=== PATIENT | male | born 1970 | race Caucasian/White ===

== ENCOUNTER 2018-01-09 13:35 | Inpatient (IN) | payer MEDICARE, MEDICAID ==
[~2018-01-09] VITALS: Ht 165.1 cm; Wt 79.8 kg
[~2018-01-09 13:35] MED LIST: FOLI1 PO; LITH150C PO; LITH600 PO; MULT1CAP32 PO; PANT40TA25 PO; PARO-66 PO; PARO20TA24 PO; QUET100T PO; QUET200T PO; THIA100 PO
[2018-01-09 15:31] LABS: BASOPHILS % (AUTO) 0.5 % (0.0-2.0); EOSINOPHILS % (AUTO) 1.7 % (1.0-6.0); HEMATOCRIT 49.5 % (41-53); HEMOGLOBIN 17.2 g/dL (13.5-17.5); LYMPHOCYTES # (AUTO) 1.6 K/uL (1.0-4.8); LYMPHOCYTES % (AUTO) 15.4 % (22.0-44.0); MEAN CORPUSCULAR HEMOGLOBIN 31.7 pg (26.0-34.0); MEAN CORPUSCULAR HGB CONC 34.7 G/dL (31.0-37.0); MEAN CORPUSCULAR VOLUME 92 fL (80-100); MONOCYTES # (AUTO) 0.7 K/uL (0.1-1.0); MONOCYTES % (AUTO) 6.2 % (2.0-9.0); NEUTROPHILS % (AUTO) 76.2 % (40.0-70.0); PLATELET COUNT (AUTO) 250 K/uL (150-450); RED BLOOD CELL COUNT(AUTO) 5.41 MIL/uL (4.50-5.90); RED CELL DISTRIBUTION WIDTH 13.7 % (11.5-14.5)
[2018-01-09 15:49] LABS: ANION GAP 10 mmol/L (8-16); CALCIUM, TOTAL 8.9 mg/dL (8.8-10.5); CARBON DIOXIDE 26 mmol/L (22-29); CHLORIDE 104 mmol/L (98-107); CREATININE 0.96 mg/dL (0.60-1.30); GLOMERULAR FILTR. RATE CALC > 60 mL/min (>60); GLUCOSE,RANDOM 90 mg/dL (70-110); POTASSIUM 3.6 mmol/L (3.5-5.1); SODIUM SERUM 140 mmol/L (136-145); UREA NITROGEN, BLOOD 12 mg/dL (7-18)
[2018-01-09 15:53] LABS: ALANINE AMINOTRANSFERASE 120 U/L (12-78); ALBUMIN 3.9 g/dL (3.4-5.0); ALKALINE PHOSPHATASE 65 U/L (46-116); ASPARTATE AMINOTRANSFERASE 81 U/L (15-37); BILIRUBIN,TOTAL 0.7 mg/dL (0.1-1.0); TOTAL PROTEIN, SERUM 6.5 g/dL (6.4-8.2)
[2018-01-09 16:07] LABS: LITHIUM < 0.20 mmol/L (0.60-1.20)
[2018-01-09 18:14] LABS: CHOLESTEROL 162 mg/dL (131-200); FREE T4 (FREE THYROXINE) 1.24 ng/dL (0.76-1.46); HDL CHOLESTEROL 41 mg/dL (40-60); LDL CHOL (CALC.) 100 mg/dL (0-130); THYROID STIMULATING HORMONE 0.48 uIU/mL (0.36-3.74); TRIGLYCERIDES 107 mg/dL (15-150)
[2018-01-09] MEDS ORDERED: IBUPROFEN 400 MG TABLET PO PRN (19:45)
[2018-01-09] MEDS ORDERED: ACETAMINOPHEN 325 MG TABLET PO PRN (19:45)
[2018-01-09 20:25] VITALS: BP 138/75
[2018-01-10] MEDS: PANTOPRAZOLE SODIUM 40 MG DR TABLET PO SCH (06:54)
[2018-01-10 07:51] LABS: CHOL/HDL RATIO 3.9 (4.2-7.3); THYROID STIMULATING HORMONE 0.5 uIU/mL (0.36-3.74)
[2018-01-10 08:02] LABS: HEMOGLOBIN A1C 5.8 % (4.5-6.2)
[2018-01-10] MEDS: MULTIVITAMINS WITH MINERALS, THERAPEUTIC TABLET PO SCH (09:25)
[2018-01-10] MEDS: LORazepam 2 MG TABLET PO PRN (09:27)
[2018-01-10 11:08] VITALS: BP 146/104
[2018-01-10] MEDS: PARoxetine HCL 20 MG TABLET PO SCH (12:03)
[2018-01-10 16:28] VITALS: BP 117/71
[2018-01-10] MEDS ORDERED: ALBUTEROL SULFATE HFA 90 MCG/PUFF 8 GM INHALER IH PRN (16:30)
[2018-01-10] MEDS: QUEtiapine FUMARATE 200 MG TABLET PO SCH (20:37)
[2018-01-11] MEDS: PANTOPRAZOLE SODIUM 40 MG DR TABLET PO SCH (06:51)
[2018-01-11 08:45] VITALS: BP 136/74
[2018-01-11] MEDS: OMEPRAZOLE 20 MG CAPSULE PO SCH (09:20)
[2018-01-11] MEDS: PARoxetine HCL 20 MG TABLET PO SCH (09:20)
[2018-01-11] MEDS: MULTIVITAMINS WITH MINERALS, THERAPEUTIC TABLET PO SCH (09:20)
[2018-01-11] MEDS: LORazepam 2 MG TABLET PO PRN ×3 (09:21→22:04)
[2018-01-11 16:26] VITALS: BP 114/66
[2018-01-11] MEDS: QUEtiapine FUMARATE 200 MG TABLET PO SCH (20:42)
[2018-01-12] MEDS: PANTOPRAZOLE SODIUM 40 MG DR TABLET PO SCH (06:50)
[2018-01-12 09:37] VITALS: BP 111/84
[2018-01-12] MEDS: LORazepam 2 MG TABLET PO PRN ×3 (09:49→21:01)
[2018-01-12] MEDS: MULTIVITAMINS WITH MINERALS, THERAPEUTIC TABLET PO SCH (09:50)
[2018-01-12] MEDS: OMEPRAZOLE 20 MG CAPSULE PO SCH (09:50)
[2018-01-12] MEDS: PARoxetine HCL 20 MG TABLET PO SCH (09:50)
[2018-01-12 16:36] VITALS: BP_SYST 121; BP_SYST 123; BP_DIAS 63; BP_DIAS 84
[2018-01-12] MEDS: QUEtiapine FUMARATE 200 MG TABLET PO SCH (20:03)
[2018-01-13] MEDS: ZOLPIDEM TARTRATE 10 MG TABLET PO PRN ×2 (00:29→22:56)
[2018-01-13] MEDS: HALOPERIDOL 5 MG TABLET PO PRN ×2 (00:31→00:35)
[2018-01-13 01:36] VITALS: BP 120/90
[2018-01-13] MEDS: PANTOPRAZOLE SODIUM 40 MG DR TABLET PO SCH (06:54)
[2018-01-13] MEDS: LORazepam 2 MG TABLET PO PRN ×2 (09:22→20:53)
[2018-01-13] MEDS: OMEPRAZOLE 20 MG CAPSULE PO SCH (09:22)
[2018-01-13] MEDS: MULTIVITAMINS WITH MINERALS, THERAPEUTIC TABLET PO SCH (09:22)
[2018-01-13] MEDS: PARoxetine HCL 20 MG TABLET PO SCH (09:22)
[2018-01-13 09:36] VITALS: BP 126/81
[2018-01-13] MEDS: QUEtiapine FUMARATE 200 MG TABLET PO SCH (20:53)
[2018-01-13 21:39] VITALS: BP 127/82
[2018-01-14] MEDS: PANTOPRAZOLE SODIUM 40 MG DR TABLET PO SCH (06:55)
[2018-01-14 08:46] VITALS: BP 126/98
[2018-01-14] MEDS: PARoxetine HCL 20 MG TABLET PO SCH (09:04)
[2018-01-14] MEDS: OMEPRAZOLE 20 MG CAPSULE PO SCH (09:04)
[2018-01-14] MEDS: MULTIVITAMINS WITH MINERALS, THERAPEUTIC TABLET PO SCH (09:04)
[2018-01-14] MEDS: LORazepam 2 MG TABLET PO PRN ×2 (10:52→15:37)
[2018-01-14 18:51] VITALS: BP 123/85
[2018-01-14] MEDS: QUEtiapine FUMARATE 200 MG TABLET PO SCH (20:00)
[2018-01-14] MEDS: ZOLPIDEM TARTRATE 10 MG TABLET PO PRN (20:31)
[2018-01-15 00:20] VITALS: BP 110/73
[2018-01-15] MEDS: LORazepam 2 MG TABLET PO PRN ×4 (00:22→19:02)
[2018-01-15] MEDS: PANTOPRAZOLE SODIUM 40 MG DR TABLET PO SCH (06:41)
[2018-01-15 08:40] VITALS: BP 103/63
[2018-01-15] MEDS: MULTIVITAMINS WITH MINERALS, THERAPEUTIC TABLET PO SCH (09:04)
[2018-01-15] MEDS: OMEPRAZOLE 20 MG CAPSULE PO SCH (09:04)
[2018-01-15] MEDS: PARoxetine HCL 20 MG TABLET PO SCH (09:04)
[2018-01-15 13:40] VITALS: BP 116/78
[2018-01-15] MEDS: QUEtiapine FUMARATE 300 MG TABLET PO SCH (20:08)
[2018-01-15 20:36] VITALS: BP 128/83
[2018-01-15] MEDS: ZOLPIDEM TARTRATE 10 MG TABLET PO PRN (22:32)
[2018-01-16] MEDS: PANTOPRAZOLE SODIUM 40 MG DR TABLET PO SCH (06:55)
[2018-01-16 08:52] VITALS: BP 115/71
[2018-01-16] MEDS: MULTIVITAMINS WITH MINERALS, THERAPEUTIC TABLET PO SCH (10:36)
[2018-01-16] MEDS: PARoxetine HCL 20 MG TABLET PO SCH (10:36)
[2018-01-16] MEDS: OMEPRAZOLE 20 MG CAPSULE PO SCH (10:36)
[2018-01-16] MEDS: LORazepam 2 MG TABLET PO PRN ×2 (10:41→16:06)
[2018-01-16 16:07] VITALS: BP 124/76
[2018-01-16] MEDS: QUEtiapine FUMARATE 300 MG TABLET PO SCH (20:04)
[2018-01-16] MEDS: ZOLPIDEM TARTRATE 10 MG TABLET PO PRN (20:38)
[2018-01-17] MEDS: PANTOPRAZOLE SODIUM 40 MG DR TABLET PO SCH (06:36)
[2018-01-17 08:53] VITALS: BP 130/93
[2018-01-17] MEDS: OMEPRAZOLE 20 MG CAPSULE PO SCH (08:56)
[2018-01-17] MEDS: PARoxetine HCL 20 MG TABLET PO SCH (08:56)
[2018-01-17] MEDS: MULTIVITAMINS WITH MINERALS, THERAPEUTIC TABLET PO SCH (08:56)
[2018-01-17] MEDS: LORazepam 2 MG TABLET PO PRN ×2 (10:49→16:58)
[2018-01-17] MEDS ORDERED: PARoxetine HCL 20 MG TABLET PO ONE (11:30)
[2018-01-17 16:43] VITALS: BP 111/61
[2018-01-17] MEDS: QUEtiapine FUMARATE 300 MG TABLET PO SCH (20:11)
[2018-01-18] MEDS: PANTOPRAZOLE SODIUM 40 MG DR TABLET PO SCH (06:33)
[2018-01-18] MEDS: OMEPRAZOLE 20 MG CAPSULE PO SCH (08:57)
[2018-01-18] MEDS: MULTIVITAMINS WITH MINERALS, THERAPEUTIC TABLET PO SCH (08:57)
[2018-01-18] MEDS: PARoxetine HCL 20 MG TABLET PO SCH (08:58)
[2018-01-18 09:04] VITALS: BP 104/62
[2018-01-18] MEDS: LORazepam 2 MG TABLET PO PRN (14:21)
[2018-01-18 16:59] VITALS: BP 132/77
[2018-01-18] MEDS: LOPERAMIDE HCL 2 MG CAPSULE PO PRN (17:19)
[2018-01-18] MEDS: QUEtiapine FUMARATE 300 MG TABLET PO SCH (20:11)
[2018-01-19] MEDS: PANTOPRAZOLE SODIUM 40 MG DR TABLET PO SCH (06:35)
[2018-01-19] MEDS: MULTIVITAMINS WITH MINERALS, THERAPEUTIC TABLET PO SCH (08:49)
[2018-01-19] MEDS: OMEPRAZOLE 20 MG CAPSULE PO SCH (08:49)
[2018-01-19] MEDS: PARoxetine HCL 20 MG TABLET PO SCH (08:49)
[2018-01-19] MEDS: HALOPERIDOL 5 MG TABLET PO PRN (08:49)
[2018-01-19] MEDS: LOPERAMIDE HCL 2 MG CAPSULE PO PRN ×2 (08:50→17:31)
[2018-01-19] MEDS: LORazepam 2 MG TABLET PO PRN ×2 (08:50→17:50)
[2018-01-19 10:26] VITALS: BP 115/78
[2018-01-19 16:19] VITALS: BP 106/67
[2018-01-19] MEDS: ZOLPIDEM TARTRATE 10 MG TABLET PO PRN (21:02)
[2018-01-19] MEDS: QUEtiapine FUMARATE 300 MG TABLET PO SCH (21:02)
[2018-01-20] MEDS: PANTOPRAZOLE SODIUM 40 MG DR TABLET PO SCH (06:51)
[2018-01-20] MEDS: PARoxetine HCL 20 MG TABLET PO SCH (09:03)
[2018-01-20] MEDS: MULTIVITAMINS WITH MINERALS, THERAPEUTIC TABLET PO SCH (09:03)
[2018-01-20] MEDS: OMEPRAZOLE 20 MG CAPSULE PO SCH (09:03)
[2018-01-20 11:51] VITALS: BP 108/67
[2018-01-20] MEDS: LORazepam 2 MG TABLET PO PRN (13:37)
[2018-01-20 16:32] VITALS: BP 116/77
[2018-01-20] MEDS: QUEtiapine FUMARATE 300 MG TABLET PO SCH (20:31)
[2018-01-20] MEDS: ZOLPIDEM TARTRATE 10 MG TABLET PO PRN (21:33)
[2018-01-21] MEDS: PANTOPRAZOLE SODIUM 40 MG DR TABLET PO SCH (06:26)
[2018-01-21] MEDS: OMEPRAZOLE 20 MG CAPSULE PO SCH (09:06)
[2018-01-21] MEDS: MULTIVITAMINS WITH MINERALS, THERAPEUTIC TABLET PO SCH (09:07)
[2018-01-21] MEDS: PARoxetine HCL 20 MG TABLET PO SCH (09:07)
[2018-01-21 10:05] VITALS: BP 131/79
[2018-01-21] MEDS: QUEtiapine FUMARATE 300 MG TABLET PO SCH (20:33)
[2018-01-21 21:10] VITALS: BP 136/88
[2018-01-22] MEDS: PANTOPRAZOLE SODIUM 40 MG DR TABLET PO SCH (06:19)
[2018-01-22 08:00] VITALS: BP 116/67
[2018-01-22] MEDS: MULTIVITAMINS WITH MINERALS, THERAPEUTIC TABLET PO SCH (09:30)
[2018-01-22] MEDS: PARoxetine HCL 20 MG TABLET PO SCH (09:30)
[2018-01-22] MEDS: OMEPRAZOLE 20 MG CAPSULE PO SCH (09:31)
[2018-01-22] MEDS: QUEtiapine FUMARATE 300 MG TABLET PO SCH (20:37)
[2018-01-22 20:50] VITALS: BP 135/87
[2018-01-23] MEDS: PANTOPRAZOLE SODIUM 40 MG DR TABLET PO SCH (07:06)
[2018-01-23 08:00] VITALS: BP 131/94
[2018-01-23] MEDS: MULTIVITAMINS WITH MINERALS, THERAPEUTIC TABLET PO SCH (09:29)
[2018-01-23] MEDS: OMEPRAZOLE 20 MG CAPSULE PO SCH (09:29)
[2018-01-23] MEDS: PARoxetine HCL 20 MG TABLET PO SCH (09:29)
[2018-01-23 17:07] VITALS: BP 134/78
[2018-01-23] MEDS: QUEtiapine FUMARATE 300 MG TABLET PO SCH (20:03)
[2018-01-24] MEDS: PANTOPRAZOLE SODIUM 40 MG DR TABLET PO SCH (07:04)
[2018-01-24 08:00] VITALS: BP 133/99
[2018-01-24] MEDS: OMEPRAZOLE 20 MG CAPSULE PO SCH (09:00)
[2018-01-24] MEDS: PARoxetine HCL 20 MG TABLET PO SCH (09:00)
[2018-01-24] MEDS: MULTIVITAMINS WITH MINERALS, THERAPEUTIC TABLET PO SCH (09:00)
[2018-01-24] MEDS: LORazepam 2 MG TABLET PO PRN ×3 (09:23→20:58)
[2018-01-24] MEDS: LOPERAMIDE HCL 2 MG CAPSULE PO PRN (10:47)
[2018-01-24 17:23] VITALS: BP 123/79
[2018-01-24] MEDS: QUEtiapine FUMARATE 300 MG TABLET PO SCH (20:10)
[2018-01-24] MEDS: ZOLPIDEM TARTRATE 10 MG TABLET PO PRN (20:58)
[2018-01-25] MEDS: HALOPERIDOL 5 MG TABLET PO PRN (00:12)
[2018-01-25] MEDS: PANTOPRAZOLE SODIUM 40 MG DR TABLET PO SCH (07:12)
[2018-01-25 08:00] VITALS: BP 123/85
[2018-01-25] MEDS: MULTIVITAMINS WITH MINERALS, THERAPEUTIC TABLET PO SCH (08:50)
[2018-01-25] MEDS: OMEPRAZOLE 20 MG CAPSULE PO SCH (08:50)
[2018-01-25] MEDS: LORazepam 2 MG TABLET PO PRN ×3 (08:50→21:08)
[2018-01-25] MEDS: PARoxetine HCL 20 MG TABLET PO SCH (08:50)
[2018-01-25 17:00] VITALS: BP 125/79
[2018-01-25] MEDS: QUEtiapine FUMARATE 300 MG TABLET PO SCH (20:13)
[2018-01-25] MEDS: ZOLPIDEM TARTRATE 10 MG TABLET PO PRN (21:08)
[2018-01-26] MEDS ORDERED: QUET300T2 PO (02:13)
[2018-01-26] MEDS ORDERED: PARO20TA24 PO (02:13)
[2018-01-26] MEDS: PANTOPRAZOLE SODIUM 40 MG DR TABLET PO SCH (06:16)
[2018-01-26] MEDS ORDERED: OMEP20 PO (06:30)
[2018-01-26] MEDS: PARoxetine HCL 20 MG TABLET PO SCH (08:09)
[2018-01-26] MEDS: MULTIVITAMINS WITH MINERALS, THERAPEUTIC TABLET PO SCH (08:09)
[2018-01-26] MEDS: OMEPRAZOLE 20 MG CAPSULE PO SCH (08:09)
[2018-01-26 09:42] VITALS: BP 128/70
== END 2018-01-26 11:00 | disposition home or self-care (01) | DRG 885 ==
LOC: EMS 13:38 → 3EI 18:00
DX: F25.1 Schizoaffective disorder, depressive type (principal); R45.851 Suicidal ideations; Z91.14 Patient's other noncompliance with medication regimen; F17.200 Nicotine dependence, unspecified, uncomplicated; I10 Essential (primary) hypertension; J44.9 Chronic obstructive pulmonary disease, unspecified; K21.9 Gastro-esophageal reflux disease without esophagitis; G47.00 Insomnia, unspecified; F19.10 Other psychoactive substance abuse, uncomplicated; Z79.899 Other long term (current) drug therapy; Z91.19 Patient's noncompliance with other medical treatment and regimen; Z88.6 Allergy status to analgesic agent; Z88.0 Allergy status to penicillin; Z71.51 Drug abuse counseling and surveillance of drug abuser
CPT/HCPCS: 83036; 84439; 84443; 99285; G0480

== ENCOUNTER 2022-02-04 17:22 | Inpatient (IN) | payer MEDICARE, MEDICAID ==
[~2022-02-04] VITALS: Ht 157.5 cm; Wt 77.0 kg
[~2022-02-04 17:22] MED LIST changes: -FOLI1 PO; +GABA-1181 PO; +HYDR-4174 PO; -LITH150C PO; -LITH600 PO; +METO-558 PO; -MULT1CAP32 PO; +OMEP20 PO; -PANT40TA25 PO; -PARO-66 PO; -PARO20TA24 PO; -QUET100T PO; -QUET200T PO; +QUET300T2 PO; +SERT-162 PO; -THIA100 PO
[2022-02-04 18:08] LABS: BASOPHILS % (AUTO) 0.3 % (0.0-2.0); EOSINOPHILS % (AUTO) 3.2 % (1.0-6.0); HEMATOCRIT 41.1 % (41-53); HEMOGLOBIN 13.7 g/dL (13.5-17.5); LYMPHOCYTES % (AUTO) 11.5 % (22.0-44.0); MEAN CORPUSCULAR HEMOGLOBIN 29.2 pg (26.0-34.0); MEAN CORPUSCULAR HGB CONC 33.2 G/dL (31.0-37.0); MEAN CORPUSCULAR VOLUME 88 fL (80-100); MONOCYTES # (AUTO) 0.7 K/uL (0.1-1.0); MONOCYTES % (AUTO) 8.9 % (2.0-9.0); NEUTROPHILS # (AUTO) 6.4 K/uL (1.8-7.7); NEUTROPHILS % (AUTO) 76.1 % (40.0-70.0); PLATELET COUNT (AUTO) 306 K/uL (150-450); RED BLOOD CELL COUNT(AUTO) 4.67 MIL/uL (4.50-5.90); RED CELL DISTRIBUTION WIDTH 15.5 % (11.5-14.5)
[2022-02-04 18:17] LABS: ANION GAP 8 mmol/L (8-16); CARBON DIOXIDE 29 mmol/L (22-29); CHLORIDE 102 mmol/L (98-107); CREATININE 0.79 mg/dL (0.60-1.30); GLUCOSE,RANDOM 116 mg/dL (70-110); POTASSIUM 3.8 mmol/L (3.5-5.1); SODIUM SERUM 139 mmol/L (136-145); UREA NITROGEN, BLOOD 17 mg/dL (7-18)
[2022-02-04 18:18] LABS: CALCIUM, TOTAL 8.4 mg/dL (8.8-10.5); GLOMERULAR FILTR. RATE CALC > 60 mL/min (>60)
[2022-02-04 18:23] LABS: ALANINE AMINOTRANSFERASE 295 U/L (12-78); ALBUMIN 3.4 g/dL (3.4-5.0); ALKALINE PHOSPHATASE 192 U/L (46-116); ASPARTATE AMINOTRANSFERASE 288 U/L (15-37); BILIRUBIN,TOTAL 0.6 mg/dL (0.1-1.0)
[2022-02-04] MEDS ORDERED: LORazepam 2 MG TABLET PO ONE (21:00)
[2022-02-04 22:15] LABS: COVID AG,FIA SOURCE NASAL SWAB
[2022-02-05] MEDS: ZOLPIDEM TARTRATE 10 MG TABLET PO PRN ×2 (00:12→21:21)
[2022-02-05] MEDS: LORazepam 2 MG TABLET PO PRN ×3 (00:42→16:48)
[2022-02-05 08:45] VITALS: BP 148/69
[2022-02-05] MEDS ORDERED: MAGNESIUM HYDROXIDE SUSPENSION 30 ML UDCUP PO PRN (08:45)
[2022-02-05] MEDS ORDERED: IBUPROFEN 600 MG TABLET PO PRN (08:45)
[2022-02-05] MEDS ORDERED: BENZOCAINE/MENTHOL LOZENGE PO PRN (08:45)
[2022-02-05] MEDS ORDERED: PETROLATUM,WHITE 28 GM JELLY TP PRN (08:45)
[2022-02-05] MEDS ORDERED: BACITRACIN 28 GM OINTMENT TP PRN (08:45)
[2022-02-05] MEDS ORDERED: MAG HYDROX/AL HYDROX/SIMETH ES 30 ML SUSPENSION UDCUP PO PRN (08:45)
[2022-02-05] MEDS ORDERED: CloNIDine HCL 0.1 MG TABLET PO PRN (08:45)
[2022-02-05] MEDS ORDERED: DOCUSATE SODIUM 100 MG CAPSULE PO PRN (08:45)
[2022-02-05] MEDS ORDERED: LOPERAMIDE HCL 2 MG CAPSULE PO PRN (08:45)
[2022-02-05] MEDS ORDERED: ACETAMINOPHEN 325 MG TABLET PO PRN (08:45)
[2022-02-05] MEDS ORDERED: ONDANSETRON HCL 4 MG TABLET PO PRN (08:45)
[2022-02-05] MEDS ORDERED: OMEPRAZOLE 20 MG CAPSULE PO PRN (08:45)
[2022-02-05] MEDS ORDERED: ALBUTEROL SULFATE HFA 90 MCG/PUFF 8 GM INHALER IH PRN (08:45)
[2022-02-05] MEDS: OMEPRAZOLE 20 MG CAPSULE PO SCH (09:01)
[2022-02-05] MEDS: METOPROLOL SUCCINATE 50 MG ER TABLET PO SCH (09:01)
[2022-02-05] MEDS: GABAPENTIN 300 MG CAPSULE PO SCH ×3 (09:01→20:55)
[2022-02-05] MEDS: HydrALAZINE HCL 50 MG TABLET PO SCH (09:02)
[2022-02-05 16:24] VITALS: BP 132/86
[2022-02-05 16:48] VITALS: BP 132/86
[2022-02-06 09:00] VITALS: BP 136/89
[2022-02-06] MEDS: OMEPRAZOLE 20 MG CAPSULE PO SCH (09:31)
[2022-02-06] MEDS: METOPROLOL SUCCINATE 50 MG ER TABLET PO SCH (09:31)
[2022-02-06] MEDS: GABAPENTIN 300 MG CAPSULE PO SCH ×3 (09:31→20:06)
[2022-02-06] MEDS: HydrALAZINE HCL 50 MG TABLET PO SCH (09:32)
[2022-02-06] MEDS: LORazepam 2 MG TABLET PO PRN ×2 (09:33→16:43)
[2022-02-06] MEDS: HALOPERIDOL 5 MG TABLET PO PRN (09:34)
[2022-02-06 16:32] VITALS: BP 132/83
[2022-02-06] MEDS: QUEtiapine FUMARATE 300 MG TABLET PO SCH (20:06)
[2022-02-06] MEDS: ZOLPIDEM TARTRATE 10 MG TABLET PO PRN (20:25)
[2022-02-07] MEDS: SERTRALINE HCL 100 MG TABLET PO SCH (08:31)
[2022-02-07] MEDS: HydrALAZINE HCL 50 MG TABLET PO SCH (08:32)
[2022-02-07] MEDS: METOPROLOL SUCCINATE 50 MG ER TABLET PO SCH (08:32)
[2022-02-07] MEDS: GABAPENTIN 300 MG CAPSULE PO SCH ×2 (08:34→20:14)
[2022-02-07] MEDS: OMEPRAZOLE 20 MG CAPSULE PO SCH (08:34)
[2022-02-07] MEDS: LORazepam 2 MG TABLET PO PRN ×2 (08:34→15:49)
[2022-02-07] MEDS: HALOPERIDOL 5 MG TABLET PO PRN (08:34)
[2022-02-07 09:08] VITALS: BP 144/91
[2022-02-07 13:37] LABS: AMPHET/METH SCREEN,URINE NEGATIVE (NEGATIVE); BARBITURATE SCREEN, URINE NEGATIVE (NEGATIVE); BENZODIAZEPINES SCREEN,URINE NEGATIVE (NEGATIVE); CANNABINOID SCREEN,URINE POSITIVE (NEGATIVE); COCAINE SCREEN,URINE NEGATIVE (NEGATIVE); METHADONE SCREEN, URINE NEGATIVE (NEGATIVE); OPIATE SCREEN,URINE NEGATIVE (NEGATIVE)
[2022-02-07 13:38] LABS: PHENCYCLIDINE SCREEN,URINE NEGATIVE (NEGATIVE)
[2022-02-07 13:40] LABS: APPEARANCE,URINE CLEAR (CLEAR); BILIRUBIN,URINE NEGATIVE (NEGATIVE); GLUCOSE, URINE (UA) NEGATIVE (NEGATIVE); KETONES,URINE NEGATIVE (NEGATIVE); LEUKOCYTE ESTERASE ,URINE NEGATIVE (NEGATIVE); NITRATE,URINE NEGATIVE (NEGATIVE); OCCULT BLOOD,URINE NEGATIVE (NEGATIVE); PROTEIN,URINE 30-70 mg/dL (NEGATIVE); SPECIFIC GRAVITIY, URINE 1.026 (1.003-1.030); UROBILINOGEN,URINE <=1.0 mg/dL (<=1.0)
[2022-02-07 13:52] LABS: BACTERIA,URINE None Seen /HPF (None Seen); RBC,URINE None Seen /HPF (0-2); SQUAMOUS EPITHELIAL CELL,UR Few /LPF (None Seen); WBC,URINE 0-2 /HPF (0-5)
[2022-02-07 17:13] VITALS: BP 131/78
[2022-02-07] MEDS: QUEtiapine FUMARATE 300 MG TABLET PO SCH (20:14)
[2022-02-08 08:00] VITALS: BP 136/79
[2022-02-08] MEDS: METOPROLOL SUCCINATE 50 MG ER TABLET PO SCH (08:44)
[2022-02-08] MEDS: HydrALAZINE HCL 50 MG TABLET PO SCH (08:44)
[2022-02-08] MEDS: SERTRALINE HCL 100 MG TABLET PO SCH (08:45)
[2022-02-08] MEDS: GABAPENTIN 300 MG CAPSULE PO SCH ×2 (08:46→20:43)
[2022-02-08] MEDS: LORazepam 2 MG TABLET PO PRN ×3 (08:46→20:42)
[2022-02-08] MEDS: HALOPERIDOL 5 MG TABLET PO PRN ×2 (08:46→13:07)
[2022-02-08] MEDS: OMEPRAZOLE 20 MG CAPSULE PO SCH (08:47)
[2022-02-08 16:35] VITALS: BP 141/65
[2022-02-08] MEDS: QUEtiapine FUMARATE 300 MG TABLET PO SCH (20:43)
[2022-02-08 21:20] VITALS: BP 118/75
[2022-02-09 08:06] VITALS: BP 127/88
[2022-02-09] MEDS: OMEPRAZOLE 20 MG CAPSULE PO SCH (08:13)
[2022-02-09] MEDS: SERTRALINE HCL 100 MG TABLET PO SCH (08:13)
[2022-02-09] MEDS: GABAPENTIN 300 MG CAPSULE PO SCH ×2 (08:13→20:02)
[2022-02-09] MEDS: METOPROLOL SUCCINATE 50 MG ER TABLET PO SCH (08:14)
[2022-02-09] MEDS: HydrALAZINE HCL 50 MG TABLET PO SCH (08:14)
[2022-02-09] MEDS: LORazepam 2 MG TABLET PO PRN ×2 (08:15→16:13)
[2022-02-09] MEDS: HALOPERIDOL 5 MG TABLET PO PRN (08:16)
[2022-02-09 16:25] VITALS: BP 131/81
[2022-02-09] MEDS: QUEtiapine FUMARATE 300 MG TABLET PO SCH (20:02)
[2022-02-10] MEDS: ZOLPIDEM TARTRATE 10 MG TABLET PO PRN ×2 (00:08→21:07)
[2022-02-10 00:52] VITALS: BP 134/79
[2022-02-10] MEDS: LORazepam 2 MG TABLET PO PRN ×3 (05:48→18:32)
[2022-02-10 08:06] VITALS: BP 108/60
[2022-02-10] MEDS: GABAPENTIN 300 MG CAPSULE PO SCH ×2 (09:17→20:05)
[2022-02-10] MEDS: OMEPRAZOLE 20 MG CAPSULE PO SCH (09:17)
[2022-02-10] MEDS: SERTRALINE HCL 100 MG TABLET PO SCH (09:18)
[2022-02-10] MEDS: HydrALAZINE HCL 50 MG TABLET PO SCH (09:18)
[2022-02-10] MEDS: METOPROLOL SUCCINATE 50 MG ER TABLET PO SCH (09:18)
[2022-02-10 17:10] VITALS: BP 130/84
[2022-02-10] MEDS: QUEtiapine FUMARATE 300 MG TABLET PO SCH (20:05)
[2022-02-11 04:11] VITALS: BP 117/81
[2022-02-11 08:00] VITALS: BP 135/91
[2022-02-11] MEDS: OMEPRAZOLE 20 MG CAPSULE PO SCH (08:21)
[2022-02-11] MEDS: GABAPENTIN 300 MG CAPSULE PO SCH (08:21)
[2022-02-11] MEDS: SERTRALINE HCL 100 MG TABLET PO SCH (08:22)
[2022-02-11] MEDS: HydrALAZINE HCL 50 MG TABLET PO SCH (08:22)
[2022-02-11] MEDS: METOPROLOL SUCCINATE 50 MG ER TABLET PO SCH (08:22)
[2022-02-11] MEDS: LORazepam 2 MG TABLET PO PRN ×2 (08:59→13:00)
[2022-02-11] MEDS ORDERED: QUET300T19 PO (14:55)
[2022-02-11] MEDS ORDERED: GABA-1181 PO (14:55)
[2022-02-11] MEDS ORDERED: SERT-440 PO (14:55)
== END 2022-02-11 15:31 | disposition home or self-care (01) | DRG 885 ==
LOC: EMS 17:22 → 3EX 02-05 00:16
PROVIDERS: ADMIT Psychiatry & Neurology Psychiatry; ATTEND Psychiatry & Neurology Psychiatry
DX: F25.9 Schizoaffective disorder, unspecified (principal); B18.2 Chronic viral hepatitis C; R45.851 Suicidal ideations; F12.90 Cannabis use, unspecified, uncomplicated; F31.9 Bipolar disorder, unspecified; I10 Essential (primary) hypertension; G47.00 Insomnia, unspecified; K59.00 Constipation, unspecified; F41.9 Anxiety disorder, unspecified; F19.10 Other psychoactive substance abuse, uncomplicated; K21.9 Gastro-esophageal reflux disease without esophagitis; Z91.14 Patient's other noncompliance with medication regimen; Z88.0 Allergy status to penicillin; Z88.8 Allergy status to other drugs, medicaments and biological substances; Z72.0 Tobacco use
CPT/HCPCS: 80053; 80307; 81001; 85025; 87081; 99285; G0378; G0480

== ENCOUNTER 2022-06-10 05:20 | Inpatient (IN) | payer MEDICARE, MEDICAID ==
[~2022-06-10] VITALS: Ht 162.6 cm; Wt 94.8 kg
[~2022-06-10 05:20] MED LIST changes: +QUET300T19 PO; +SERT-440 PO
[2022-06-10 05:41] LABS: BASOPHILS % (AUTO) 0.5 % (0.0-2.0); EOSINOPHILS % (AUTO) 0.4 % (1.0-6.0); HEMATOCRIT 44.6 % (41-53); HEMOGLOBIN 14.9 g/dL (13.5-17.5); LYMPHOCYTES # (AUTO) 1.4 K/uL (1.0-4.8); LYMPHOCYTES % (AUTO) 12.9 % (22.0-44.0); MEAN CORPUSCULAR HEMOGLOBIN 28.7 pg (26.0-34.0); MEAN CORPUSCULAR HGB CONC 33.3 G/dL (31.0-37.0); MEAN CORPUSCULAR VOLUME 86 fL (80-100); NEUTROPHILS # (AUTO) 8.4 K/uL (1.8-7.7); NEUTROPHILS % (AUTO) 77.2 % (40.0-70.0); PLATELET COUNT (AUTO) 320 K/uL (150-450); RED BLOOD CELL COUNT(AUTO) 5.18 MIL/uL (4.50-5.90); RED CELL DISTRIBUTION WIDTH 15.4 % (11.5-14.5)
[2022-06-10 05:50] LABS: ANION GAP 11 mmol/L (8-16); CALCIUM, TOTAL 9.3 mg/dL (8.8-10.5); CARBON DIOXIDE 28 mmol/L (22-29); CHLORIDE 107 mmol/L (98-107); GLUCOSE,RANDOM 103 mg/dL (70-110); POTASSIUM 3.8 mmol/L (3.5-5.1); SODIUM SERUM 146 mmol/L (136-145); UREA NITROGEN, BLOOD 15 mg/dL (7-18)
[2022-06-10 05:56] LABS: GLOMERULAR FILTR. RATE CALC > 60 mL/min (>60)
[2022-06-10 05:59] LABS: ALANINE AMINOTRANSFERASE 31 U/L (12-78); ALBUMIN 4.3 g/dL (3.4-5.0); ALKALINE PHOSPHATASE 104 U/L (46-116); ASPARTATE AMINOTRANSFERASE 36 U/L (15-37); BILIRUBIN,TOTAL 0.6 mg/dL (0.1-1.0); TOTAL PROTEIN, SERUM 8.3 g/dL (6.4-8.2)
[2022-06-10] MEDS ORDERED: HALOPERIDOL 5 MG TABLET PO PRN (09:00)
[2022-06-10] MEDS ORDERED: OLANZapine 5 MG TABLET PO ONE (09:00)
[2022-06-10] MEDS ORDERED: LORazepam 1 MG TABLET PO ONE (09:00)
[2022-06-10 09:06] LABS: COVID AG,FIA SOURCE NASAL SWAB
[2022-06-10 11:39] VITALS: BP 160/89
[2022-06-10] MEDS: LORazepam 2 MG TABLET PO PRN ×2 (12:47→17:55)
[2022-06-10 16:09] VITALS: BP 160/100
[2022-06-10] MEDS: ZOLPIDEM TARTRATE 10 MG TABLET PO PRN (20:34)
[2022-06-11] MEDS: LORazepam 2 MG TABLET PO PRN ×2 (00:25→08:12)
[2022-06-11 08:30] VITALS: BP 167/99
[2022-06-11] MEDS: GABAPENTIN 300 MG CAPSULE PO SCH (17:27)
[2022-06-11] MEDS ORDERED: MAG HYDROX/AL HYDROX/SIMETH ES 30 ML SUSPENSION UDCUP PO PRN (18:00)
[2022-06-11] MEDS ORDERED: LOPERAMIDE HCL 2 MG CAPSULE PO PRN (18:00)
[2022-06-11] MEDS ORDERED: ACETAMINOPHEN 325 MG TABLET PO PRN (18:00)
[2022-06-11] MEDS ORDERED: OMEPRAZOLE 20 MG CAPSULE PO PRN (18:00)
[2022-06-11] MEDS ORDERED: DOCUSATE SODIUM 100 MG CAPSULE PO PRN (18:00)
[2022-06-11] MEDS ORDERED: BACITRACIN 28 GM OINTMENT TP PRN (18:00)
[2022-06-11] MEDS ORDERED: MAGNESIUM HYDROXIDE SUSPENSION 30 ML UDCUP PO PRN (18:00)
[2022-06-11] MEDS ORDERED: PETROLATUM,WHITE 28 GM JELLY TP PRN (18:00)
[2022-06-11] MEDS ORDERED: ALBUTEROL SULFATE HFA 90 MCG/PUFF 8 GM INHALER IH PRN (18:00)
[2022-06-11] MEDS ORDERED: BENZOCAINE/MENTHOL LOZENGE PO PRN (18:00)
[2022-06-11] MEDS ORDERED: ONDANSETRON HCL 4 MG TABLET PO PRN (18:00)
[2022-06-11] MEDS ORDERED: CloNIDine HCL 0.1 MG TABLET PO PRN (18:00)
[2022-06-11] MEDS ORDERED: IBUPROFEN 600 MG TABLET PO PRN (18:00)
[2022-06-11] MEDS: METOPROLOL SUCCINATE 50 MG ER TABLET PO SCH (18:23)
[2022-06-11] MEDS: HydrALAZINE HCL 50 MG TABLET PO SCH (18:24)
[2022-06-11] MEDS: QUEtiapine FUMARATE 300 MG TABLET PO SCH (20:30)
[2022-06-12] MEDS: HydrALAZINE HCL 50 MG TABLET PO SCH (08:17)
[2022-06-12] MEDS: GABAPENTIN 300 MG CAPSULE PO SCH ×2 (08:18→17:33)
[2022-06-12] MEDS: SERTRALINE HCL 100 MG TABLET PO SCH (08:18)
[2022-06-12] MEDS: METOPROLOL SUCCINATE 50 MG ER TABLET PO SCH (08:18)
[2022-06-12 08:30] VITALS: BP 115/74
[2022-06-12 16:16] VITALS: BP 115/75
[2022-06-12] MEDS: QUEtiapine FUMARATE 300 MG TABLET PO SCH (21:37)
[2022-06-13 08:06] VITALS: BP 133/76
[2022-06-13] MEDS: SERTRALINE HCL 100 MG TABLET PO SCH (09:38)
[2022-06-13] MEDS: HydrALAZINE HCL 50 MG TABLET PO SCH (09:39)
[2022-06-13] MEDS: METOPROLOL SUCCINATE 50 MG ER TABLET PO SCH (09:39)
[2022-06-13] MEDS: GABAPENTIN 300 MG CAPSULE PO SCH ×2 (09:39→16:38)
[2022-06-13 16:08] VITALS: BP 108/84
[2022-06-13] MEDS: QUEtiapine FUMARATE 300 MG TABLET PO SCH (20:20)
[2022-06-14 08:00] VITALS: BP 110/82
[2022-06-14] MEDS: GABAPENTIN 300 MG CAPSULE PO SCH ×2 (08:19→16:20)
[2022-06-14] MEDS: METOPROLOL SUCCINATE 50 MG ER TABLET PO SCH (08:19)
[2022-06-14] MEDS: SERTRALINE HCL 100 MG TABLET PO SCH (08:19)
[2022-06-14] MEDS: HydrALAZINE HCL 50 MG TABLET PO SCH (08:19)
[2022-06-14 16:50] VITALS: BP 113/72
[2022-06-14] MEDS: QUEtiapine FUMARATE 300 MG TABLET PO SCH (20:25)
[2022-06-15] MEDS: GABAPENTIN 300 MG CAPSULE PO SCH ×2 (08:38→16:28)
[2022-06-15] MEDS: HydrALAZINE HCL 50 MG TABLET PO SCH (08:38)
[2022-06-15] MEDS: METOPROLOL SUCCINATE 50 MG ER TABLET PO SCH (08:38)
[2022-06-15] MEDS: SERTRALINE HCL 100 MG TABLET PO SCH (08:39)
[2022-06-15 10:46] VITALS: BP 111/63
[2022-06-15 16:23] VITALS: BP 124/57
[2022-06-15] MEDS: QUEtiapine FUMARATE 300 MG TABLET PO SCH (20:18)
[2022-06-15] MEDS: ZOLPIDEM TARTRATE 10 MG TABLET PO PRN (20:36)
[2022-06-16 06:33] LABS: COVID AG,FIA SOURCE NASAL SWAB
[2022-06-16 08:52] VITALS: BP 140/103
[2022-06-16] MEDS: SERTRALINE HCL 100 MG TABLET PO SCH (08:59)
[2022-06-16] MEDS: METOPROLOL SUCCINATE 50 MG ER TABLET PO SCH (09:00)
[2022-06-16] MEDS: GABAPENTIN 300 MG CAPSULE PO SCH ×2 (09:00→15:52)
[2022-06-16] MEDS: HydrALAZINE HCL 50 MG TABLET PO SCH (09:00)
[2022-06-16] MEDS: LORazepam 2 MG TABLET PO PRN ×2 (14:33→20:00)
[2022-06-16 16:15] VITALS: BP 144/82
[2022-06-16] MEDS: QUEtiapine FUMARATE 300 MG TABLET PO SCH (20:01)
[2022-06-17 08:06] VITALS: BP 146/98
[2022-06-17] MEDS: GABAPENTIN 300 MG CAPSULE PO SCH ×2 (08:15→15:58)
[2022-06-17] MEDS: SERTRALINE HCL 100 MG TABLET PO SCH (08:15)
[2022-06-17] MEDS: METOPROLOL SUCCINATE 50 MG ER TABLET PO SCH (08:16)
[2022-06-17] MEDS: HydrALAZINE HCL 50 MG TABLET PO SCH (08:16)
[2022-06-17] MEDS: LORazepam 2 MG TABLET PO PRN ×2 (15:46→20:04)
[2022-06-17 16:42] VITALS: BP 101/72
[2022-06-17] MEDS: QUEtiapine FUMARATE 300 MG TABLET PO SCH (20:04)
[2022-06-18] MEDS: SERTRALINE HCL 100 MG TABLET PO SCH (08:58)
[2022-06-18] MEDS: MULTIVITAMINS WITH MINERALS, THERAPEUTIC TABLET PO SCH (08:59)
[2022-06-18] MEDS: METOPROLOL SUCCINATE 50 MG ER TABLET PO SCH (08:59)
[2022-06-18] MEDS: HydrALAZINE HCL 50 MG TABLET PO SCH (08:59)
[2022-06-18] MEDS: THIAMINE 100 MG TABLET PO SCH (08:59)
[2022-06-18] MEDS: FOLIC ACID 1 MG TABLET PO SCH (08:59)
[2022-06-18] MEDS: GABAPENTIN 300 MG CAPSULE PO SCH ×2 (08:59→16:17)
[2022-06-18 09:34] VITALS: BP 111/79
[2022-06-18] MEDS: LORazepam 2 MG TABLET PO PRN (15:36)
[2022-06-18 16:35] VITALS: BP 123/71
[2022-06-18] MEDS: QUEtiapine FUMARATE 300 MG TABLET PO SCH (20:21)
[2022-06-19] MEDS: LORazepam 2 MG TABLET PO PRN ×2 (07:55→14:31)
[2022-06-19] MEDS: METOPROLOL SUCCINATE 50 MG ER TABLET PO SCH (09:00)
[2022-06-19] MEDS: HydrALAZINE HCL 50 MG TABLET PO SCH (09:00)
[2022-06-19 09:32] VITALS: BP 106/69
[2022-06-19] MEDS: GABAPENTIN 300 MG CAPSULE PO SCH ×2 (09:41→16:34)
[2022-06-19] MEDS: SERTRALINE HCL 100 MG TABLET PO SCH (09:41)
[2022-06-19] MEDS: MULTIVITAMINS WITH MINERALS, THERAPEUTIC TABLET PO SCH (09:41)
[2022-06-19] MEDS: FOLIC ACID 1 MG TABLET PO SCH (09:41)
[2022-06-19] MEDS: THIAMINE 100 MG TABLET PO SCH (09:41)
[2022-06-19 16:14] VITALS: BP 109/69
[2022-06-19] MEDS: QUEtiapine FUMARATE 300 MG TABLET PO SCH (20:31)
[2022-06-20 08:30] VITALS: BP 117/82
[2022-06-20] MEDS: GABAPENTIN 300 MG CAPSULE PO SCH ×2 (08:57→16:52)
[2022-06-20] MEDS: SERTRALINE HCL 100 MG TABLET PO SCH (08:58)
[2022-06-20] MEDS: MULTIVITAMINS WITH MINERALS, THERAPEUTIC TABLET PO SCH (08:58)
[2022-06-20] MEDS: THIAMINE 100 MG TABLET PO SCH (08:58)
[2022-06-20] MEDS: METOPROLOL SUCCINATE 50 MG ER TABLET PO SCH (08:58)
[2022-06-20] MEDS: FOLIC ACID 1 MG TABLET PO SCH (08:58)
[2022-06-20] MEDS: HydrALAZINE HCL 50 MG TABLET PO SCH (08:59)
[2022-06-20] MEDS: LORazepam 2 MG TABLET PO PRN ×3 (09:15→18:55)
[2022-06-20 16:15] VITALS: BP 123/65
[2022-06-20] MEDS: QUEtiapine FUMARATE 300 MG TABLET PO SCH (20:09)
[2022-06-21 06:48] VITALS: BP 135/81
[2022-06-21] MEDS: LORazepam 2 MG TABLET PO PRN ×3 (06:48→17:45)
[2022-06-21 08:05] VITALS: BP 124/79
[2022-06-21] MEDS: FOLIC ACID 1 MG TABLET PO SCH (08:47)
[2022-06-21] MEDS: HydrALAZINE HCL 50 MG TABLET PO SCH (08:47)
[2022-06-21] MEDS: MULTIVITAMINS WITH MINERALS, THERAPEUTIC TABLET PO SCH (08:47)
[2022-06-21] MEDS: THIAMINE 100 MG TABLET PO SCH (08:47)
[2022-06-21] MEDS: GABAPENTIN 300 MG CAPSULE PO SCH ×2 (08:48→16:02)
[2022-06-21] MEDS: SERTRALINE HCL 100 MG TABLET PO SCH (08:48)
[2022-06-21] MEDS: METOPROLOL SUCCINATE 50 MG ER TABLET PO SCH (08:48)
[2022-06-21 16:48] VITALS: BP 119/75
[2022-06-21] MEDS: ZOLPIDEM TARTRATE 10 MG TABLET PO PRN (20:40)
[2022-06-21] MEDS: QUEtiapine FUMARATE 300 MG TABLET PO SCH (20:40)
[2022-06-22 08:00] VITALS: BP 106/61
[2022-06-22] MEDS: METOPROLOL SUCCINATE 50 MG ER TABLET PO SCH ×2 (09:00→09:05)
[2022-06-22] MEDS: HydrALAZINE HCL 50 MG TABLET PO SCH (09:00)
[2022-06-22] MEDS: FOLIC ACID 1 MG TABLET PO SCH (09:04)
[2022-06-22] MEDS: SERTRALINE HCL 100 MG TABLET PO SCH (09:05)
[2022-06-22] MEDS: THIAMINE 100 MG TABLET PO SCH (09:05)
[2022-06-22] MEDS: MULTIVITAMINS WITH MINERALS, THERAPEUTIC TABLET PO SCH (09:06)
[2022-06-22] MEDS: GABAPENTIN 300 MG CAPSULE PO SCH ×2 (09:06→16:19)
[2022-06-22] MEDS: LORazepam 2 MG TABLET PO PRN ×2 (09:15→14:32)
[2022-06-22 10:07] LABS: ANION GAP 5 mmol/L (8-16); CALCIUM, TOTAL 8.8 mg/dL (8.8-10.5); CARBON DIOXIDE 29 mmol/L (22-29); CHLORIDE 103 mmol/L (98-107); GLUCOSE,RANDOM 62 mg/dL (70-110); POTASSIUM 3.9 mmol/L (3.5-5.1); SODIUM SERUM 137 mmol/L (136-145); UREA NITROGEN, BLOOD 12 mg/dL (7-18)
[2022-06-22 10:08] LABS: GLOMERULAR FILTR. RATE CALC > 60 mL/min (>60)
[2022-06-22 16:00] VITALS: BP 128/81
[2022-06-22] MEDS: QUEtiapine FUMARATE 300 MG TABLET PO SCH (20:52)
[2022-06-22] MEDS: ZOLPIDEM TARTRATE 10 MG TABLET PO PRN (21:44)
[2022-06-22] MEDS ORDERED: QUET300T19 PO (22:07)
[2022-06-22] MEDS ORDERED: SERT-440 PO (22:07)
[2022-06-23 07:38] LABS: COVID AG,FIA SOURCE NASAL SWAB
[2022-06-23] MEDS: HydrALAZINE HCL 50 MG TABLET PO SCH (08:11)
[2022-06-23] MEDS: METOPROLOL SUCCINATE 50 MG ER TABLET PO SCH (08:11)
[2022-06-23] MEDS: SERTRALINE HCL 100 MG TABLET PO SCH (08:11)
[2022-06-23] MEDS: THIAMINE 100 MG TABLET PO SCH (08:11)
[2022-06-23] MEDS: FOLIC ACID 1 MG TABLET PO SCH (08:12)
[2022-06-23] MEDS: MULTIVITAMINS WITH MINERALS, THERAPEUTIC TABLET PO SCH (08:13)
[2022-06-23] MEDS: GABAPENTIN 300 MG CAPSULE PO SCH ×2 (08:13→16:31)
[2022-06-23] MEDS: LORazepam 2 MG TABLET PO PRN ×3 (08:13→19:17)
[2022-06-23 19:15] VITALS: BP 128/87
[2022-06-23] MEDS: QUEtiapine FUMARATE 300 MG TABLET PO SCH (20:18)
[2022-06-23] MEDS: ZOLPIDEM TARTRATE 10 MG TABLET PO PRN (21:14)
[2022-06-24 08:00] VITALS: BP 122/88
[2022-06-24] MEDS: HydrALAZINE HCL 50 MG TABLET PO SCH (08:37)
[2022-06-24] MEDS: SERTRALINE HCL 100 MG TABLET PO SCH (08:38)
[2022-06-24] MEDS: THIAMINE 100 MG TABLET PO SCH (08:38)
[2022-06-24] MEDS: METOPROLOL SUCCINATE 50 MG ER TABLET PO SCH (08:38)
[2022-06-24] MEDS: FOLIC ACID 1 MG TABLET PO SCH (08:38)
[2022-06-24] MEDS: GABAPENTIN 300 MG CAPSULE PO SCH ×2 (08:41→17:07)
[2022-06-24] MEDS: MULTIVITAMINS WITH MINERALS, THERAPEUTIC TABLET PO SCH (08:41)
[2022-06-24] MEDS: LORazepam 2 MG TABLET PO PRN ×3 (08:41→18:35)
[2022-06-24 16:22] VITALS: BP 122/80
[2022-06-24] MEDS: QUEtiapine FUMARATE 300 MG TABLET PO SCH (20:46)
[2022-06-25] MEDS: GABAPENTIN 300 MG CAPSULE PO SCH (08:10)
[2022-06-25] MEDS: THIAMINE 100 MG TABLET PO SCH (08:10)
[2022-06-25] MEDS: MULTIVITAMINS WITH MINERALS, THERAPEUTIC TABLET PO SCH (08:10)
[2022-06-25] MEDS: HydrALAZINE HCL 50 MG TABLET PO SCH (08:10)
[2022-06-25] MEDS: SERTRALINE HCL 100 MG TABLET PO SCH (08:10)
[2022-06-25] MEDS: FOLIC ACID 1 MG TABLET PO SCH (08:10)
[2022-06-25] MEDS: METOPROLOL SUCCINATE 50 MG ER TABLET PO SCH (08:10)
[2022-06-25] MEDS: LORazepam 2 MG TABLET PO PRN (08:12)
[2022-06-25 09:42] VITALS: BP 124/83
== END 2022-06-25 14:45 | disposition home or self-care (01) | DRG 885 ==
LOC: EMS 05:21 → 3EX 09:47
PROVIDERS: ADMIT Psychiatry & Neurology Psychiatry; ATTEND Psychiatry & Neurology Psychiatry
DX: F25.9 Schizoaffective disorder, unspecified (principal); B18.2 Chronic viral hepatitis C; I10 Essential (primary) hypertension; K21.9 Gastro-esophageal reflux disease without esophagitis; G47.00 Insomnia, unspecified; K59.00 Constipation, unspecified; F41.9 Anxiety disorder, unspecified; F10.10 Alcohol abuse, uncomplicated; Z20.822 Contact with and (suspected) exposure to COVID-19; B19.20 Unspecified viral hepatitis C without hepatic coma; Z87.891 Personal history of nicotine dependence; Z79.899 Other long term (current) drug therapy; Z88.0 Allergy status to penicillin; Z88.5 Allergy status to narcotic agent; Z88.8 Allergy status to other drugs, medicaments and biological substances
CPT/HCPCS: 80048; 80053; 85025; 87081; 99285; G0378; G0480

== ENCOUNTER 2022-07-13 12:15 | Inpatient (IN) | payer MEDICARE, MEDICAID ==
[~2022-07-13] VITALS: Ht 165.1 cm; Wt 89.8 kg
[~2022-07-13 12:15] MED LIST changes: -OMEP20 PO; -QUET300T2 PO; -SERT-162 PO
[2022-07-13 16:32] LABS: BASOPHILS % (AUTO) 0.6 % (0.0-2.0); EOSINOPHILS % (AUTO) 1.1 % (1.0-6.0); HEMATOCRIT 49.3 % (41-53); HEMOGLOBIN 16.2 g/dL (13.5-17.5); LYMPHOCYTES # (AUTO) 1.5 K/uL (1.0-4.8); MEAN CORPUSCULAR HEMOGLOBIN 28.8 pg (26.0-34.0); MEAN CORPUSCULAR HGB CONC 32.8 G/dL (31.0-37.0); MEAN CORPUSCULAR VOLUME 88 fL (80-100); MONOCYTES # (AUTO) 0.6 K/uL (0.1-1.0); MONOCYTES % (AUTO) 8.2 % (2.0-9.0); NEUTROPHILS # (AUTO) 4.9 K/uL (1.8-7.7); NEUTROPHILS % (AUTO) 69.1 % (40.0-70.0); PLATELET COUNT (AUTO) 260 K/uL (150-450); RED BLOOD CELL COUNT(AUTO) 5.61 MIL/uL (4.50-5.90); RED CELL DISTRIBUTION WIDTH 14.9 % (11.5-14.5)
[2022-07-13 16:41] LABS: ANION GAP 10 mmol/L (8-16); CALCIUM, TOTAL 9.2 mg/dL (8.8-10.5); CARBON DIOXIDE 24 mmol/L (22-29); CHLORIDE 105 mmol/L (98-107); GLOMERULAR FILTR. RATE CALC > 60 mL/min (>60); GLUCOSE,RANDOM 92 mg/dL (70-110); POTASSIUM 3.5 mmol/L (3.5-5.1); SODIUM SERUM 139 mmol/L (136-145); UREA NITROGEN, BLOOD 14 mg/dL (7-18)
[2022-07-13 16:47] LABS: ALANINE AMINOTRANSFERASE 46 U/L (12-78); ALKALINE PHOSPHATASE 100 U/L (46-116); ASPARTATE AMINOTRANSFERASE 21 U/L (15-37); BILIRUBIN,TOTAL 0.4 mg/dL (0.1-1.0); TOTAL PROTEIN, SERUM 7.6 g/dL (6.4-8.2)
[2022-07-13 17:08] LABS: AMPHET/METH SCREEN,URINE NEGATIVE (NEGATIVE); BARBITURATE SCREEN, URINE NEGATIVE (NEGATIVE); BENZODIAZEPINES SCREEN,URINE NEGATIVE (NEGATIVE); CANNABINOID SCREEN,URINE NEGATIVE (NEGATIVE); COCAINE SCREEN,URINE NEGATIVE (NEGATIVE); METHADONE SCREEN, URINE NEGATIVE (NEGATIVE); OPIATE SCREEN,URINE NEGATIVE (NEGATIVE); PHENCYCLIDINE SCREEN,URINE NEGATIVE (NEGATIVE)
[2022-07-14 00:03] LABS: COVID AG,FIA SOURCE NASOPHARYNGEAL
[2022-07-14 02:15] VITALS: BP 148/98
[2022-07-14] MEDS: LORazepam 2 MG TABLET PO PRN ×2 (02:51→08:03)
[2022-07-14] MEDS: ZOLPIDEM TARTRATE 10 MG TABLET PO PRN ×2 (02:52→22:05)
[2022-07-14] MEDS: HALOPERIDOL 5 MG TABLET PO PRN ×3 (03:28→22:29)
[2022-07-14 08:18] VITALS: BP 141/83
[2022-07-14 20:07] VITALS: BP 111/71
[2022-07-14] MEDS ORDERED: IBUPROFEN 600 MG TABLET PO PRN (22:45)
[2022-07-14] MEDS ORDERED: ONDANSETRON HCL 4 MG TABLET PO PRN (22:45)
[2022-07-14] MEDS ORDERED: BACITRACIN 28 GM OINTMENT TP PRN (22:45)
[2022-07-14] MEDS ORDERED: LOPERAMIDE HCL 2 MG CAPSULE PO PRN (22:45)
[2022-07-14] MEDS ORDERED: MAG HYDROX/AL HYDROX/SIMETH ES 30 ML SUSPENSION UDCUP PO PRN (22:45)
[2022-07-14] MEDS ORDERED: DOCUSATE SODIUM 100 MG CAPSULE PO PRN (22:45)
[2022-07-14] MEDS ORDERED: OMEPRAZOLE 20 MG CAPSULE PO PRN (22:45)
[2022-07-14] MEDS ORDERED: ALBUTEROL SULFATE HFA 90 MCG/PUFF 8 GM INHALER IH PRN (22:45)
[2022-07-14] MEDS ORDERED: BENZOCAINE/MENTHOL LOZENGE PO PRN (22:45)
[2022-07-14] MEDS ORDERED: CloNIDine HCL 0.1 MG TABLET PO PRN (22:45)
[2022-07-14] MEDS ORDERED: MAGNESIUM HYDROXIDE SUSPENSION 30 ML UDCUP PO PRN (22:45)
[2022-07-14] MEDS ORDERED: ACETAMINOPHEN 325 MG TABLET PO PRN (22:45)
[2022-07-14] MEDS ORDERED: PETROLATUM,WHITE 28 GM JELLY TP PRN (22:45)
[2022-07-15] MEDS: LORazepam 2 MG TABLET PO PRN (08:05)
[2022-07-15] MEDS: HALOPERIDOL 5 MG TABLET PO PRN ×2 (08:06→17:04)
[2022-07-15] MEDS: GABAPENTIN 300 MG CAPSULE PO SCH ×2 (08:06→20:17)
[2022-07-15] MEDS: HydrALAZINE HCL 25 MG TABLET PO SCH ×2 (08:06→17:04)
[2022-07-15 08:29] VITALS: BP 106/69
[2022-07-15 17:04] VITALS: BP 128/88
[2022-07-15] MEDS: ZOLPIDEM TARTRATE 10 MG TABLET PO PRN (20:17)
[2022-07-16 04:12] VITALS: BP 119/80
[2022-07-16 08:13] VITALS: BP 141/78
[2022-07-16] MEDS: GABAPENTIN 300 MG CAPSULE PO SCH ×2 (09:17→20:32)
[2022-07-16] MEDS: HydrALAZINE HCL 25 MG TABLET PO SCH ×2 (09:17→16:49)
[2022-07-16] MEDS: HALOPERIDOL 5 MG TABLET PO PRN (09:22)
[2022-07-16 21:16] VITALS: BP 126/79
[2022-07-16] MEDS: ZOLPIDEM TARTRATE 10 MG TABLET PO PRN (21:41)
[2022-07-16] MEDS: LORazepam 2 MG TABLET PO PRN (22:14)
[2022-07-17 08:50] VITALS: BP 122/84
[2022-07-17] MEDS: HydrALAZINE HCL 25 MG TABLET PO SCH ×2 (09:05→16:28)
[2022-07-17] MEDS: GABAPENTIN 300 MG CAPSULE PO SCH ×2 (09:06→20:30)
[2022-07-17] MEDS: LORazepam 2 MG TABLET PO PRN ×3 (09:08→18:08)
[2022-07-17 16:20] VITALS: BP 127/86
[2022-07-17] MEDS: QUEtiapine FUMARATE 300 MG TABLET PO SCH (20:30)
[2022-07-17 21:28] VITALS: BP 118/85
[2022-07-18] MEDS: SERTRALINE HCL 100 MG TABLET PO SCH (08:16)
[2022-07-18] MEDS: GABAPENTIN 300 MG CAPSULE PO SCH ×2 (08:16→20:28)
[2022-07-18] MEDS: LORazepam 2 MG TABLET PO PRN ×3 (08:16→17:36)
[2022-07-18] MEDS: HydrALAZINE HCL 25 MG TABLET PO SCH ×2 (08:16→16:32)
[2022-07-18 09:58] VITALS: BP 118/83
[2022-07-18 16:32] VITALS: BP 128/77
[2022-07-18] MEDS: QUEtiapine FUMARATE 300 MG TABLET PO SCH (20:28)
[2022-07-18 20:31] VITALS: BP 120/80
[2022-07-19 08:42] LABS: GLUCOMETER DEV NAME(LOC) POC.BV
[2022-07-19] MEDS: SERTRALINE HCL 100 MG TABLET PO SCH (09:53)
[2022-07-19] MEDS: HydrALAZINE HCL 25 MG TABLET PO SCH ×2 (09:54→16:27)
[2022-07-19] MEDS: GABAPENTIN 300 MG CAPSULE PO SCH ×2 (09:54→20:35)
[2022-07-19] MEDS: LORazepam 2 MG TABLET PO PRN ×2 (09:54→14:38)
[2022-07-19 13:16] VITALS: BP 130/76
[2022-07-19 16:17] VITALS: BP 133/82
[2022-07-19 20:23] VITALS: BP 123/83
[2022-07-19] MEDS: QUEtiapine FUMARATE 300 MG TABLET PO SCH (20:35)
[2022-07-20] MEDS: HydrALAZINE HCL 25 MG TABLET PO SCH ×2 (08:01→16:24)
[2022-07-20] MEDS: SERTRALINE HCL 100 MG TABLET PO SCH (08:01)
[2022-07-20] MEDS: GABAPENTIN 300 MG CAPSULE PO SCH ×2 (08:01→20:03)
[2022-07-20 08:36] VITALS: BP 127/83
[2022-07-20] MEDS: LORazepam 2 MG TABLET PO PRN ×3 (09:02→20:03)
[2022-07-20] MEDS: QUEtiapine FUMARATE 300 MG TABLET PO SCH (20:03)
[2022-07-20 20:14] VITALS: BP 138/89
[2022-07-20] MEDS: ZOLPIDEM TARTRATE 10 MG TABLET PO PRN (21:40)
[2022-07-21] MEDS: LORazepam 2 MG TABLET PO PRN ×2 (07:06→12:11)
[2022-07-21] MEDS: GABAPENTIN 300 MG CAPSULE PO SCH (08:30)
[2022-07-21] MEDS: SERTRALINE HCL 100 MG TABLET PO SCH (08:30)
[2022-07-21] MEDS: HydrALAZINE HCL 25 MG TABLET PO SCH (08:30)
[2022-07-21 08:50] VITALS: BP 134/70
[2022-07-21] MEDS ORDERED: QUET300T19 PO (13:51)
[2022-07-21] MEDS ORDERED: GABA-1181 PO ×3 (13:51→14:24)
[2022-07-21] MEDS ORDERED: HYDR25TA84 PO (14:26)
== END 2022-07-21 14:55 | disposition home or self-care (01) | DRG 885 ==
LOC: EMS 12:15 → B3A 07-14 01:19 → B2X 07-14 13:11
PROVIDERS: ADMIT Psychiatry & Neurology Psychiatry; ATTEND Psychiatry & Neurology Psychiatry
DX: F25.9 Schizoaffective disorder, unspecified (principal); B18.2 Chronic viral hepatitis C; R45.851 Suicidal ideations; F10.10 Alcohol abuse, uncomplicated; Z20.822 Contact with and (suspected) exposure to COVID-19; G47.00 Insomnia, unspecified; K59.00 Constipation, unspecified; K21.9 Gastro-esophageal reflux disease without esophagitis; F32.9 Major depressive disorder, single episode, unspecified; I10 Essential (primary) hypertension; Z87.891 Personal history of nicotine dependence; Z79.899 Other long term (current) drug therapy; Z88.0 Allergy status to penicillin; Z88.8 Allergy status to other drugs, medicaments and biological substances; Z88.1 Allergy status to other antibiotic agents; Z90.49 Acquired absence of other specified parts of digestive tract
CPT/HCPCS: 80053; 85025; 99285; G0480